=== PATIENT | female | born 1975 | race Native Hawaiian/Other Pacific Islander ===

== ENCOUNTER 2017-01-06 16:00 | Outpatient (CLI) | payer OTHER | END 2017-01-06 22:42 | disposition home or self-care (01) | LOC: MAMMO 16:00 | DX: Z12.31 Encounter for screening mammogram for malignant neoplasm of breast (principal) | CPT/HCPCS: G0202-TC ==

== ENCOUNTER 2023-03-26 08:27 | Outpatient (CLI) | payer OTHER | END 2023-03-26 19:19 | disposition home or self-care (01) | LOC: LABW 08:27 | PROVIDERS: ATTEND Nurse Practitioner Family | DX: I49.9 Cardiac arrhythmia, unspecified (principal); R00.2 Palpitations | CPT/HCPCS: 36415; 85379; 93225 ==

== ENCOUNTER 2023-03-30 11:43 | Outpatient (CLI) | payer OTHER | END 2023-03-30 19:11 | disposition home or self-care (01) | LOC: RESP 11:43 | PROVIDERS: ATTEND Nurse Practitioner Family | DX: R00.2 Palpitations (principal); I49.9 Cardiac arrhythmia, unspecified; E78.49 Other hyperlipidemia; R07.89 Other chest pain ==

== ENCOUNTER 2023-04-14 11:45 | Outpatient (CLI) | payer OTHER | END 2023-04-14 20:24 | disposition home or self-care (01) | LOC: RESP 11:45 | PROVIDERS: ATTEND Specialist | DX: R00.2 Palpitations (principal); E78.49 Other hyperlipidemia; R07.89 Other chest pain ==